=== PATIENT | female | born 1985 | race Caucasian/White ===

== ENCOUNTER → 2020-12-11 13:54 | Outpatient (CLI) | payer BC, SELFPAY ==
--- NOTE | 2020-12-11 14:02 | MM_ITS ---
PROCEDURE: MM DX IMPLANT LT W/HOSSEIN Digital Breast Tomosynthesis Included CLINICAL INDICATION: LT BREAST MASS BEHIND NIPPLE COMPARISON: US US BREAST LT COMPLETE from 12/11/2020 TECHNIQUE: Standard CC and MLO images and 3D Tomosynthesis was obtained. R2 CAD reviewed. FINDINGS: The left breast is composed of heterogeneously dense fibroglandular tissue, may obscure masses. At the site of marker placement, there is a focal asymmetric density noted, predominantly seen on the CC view without evidence of discrete nodules. Corresponding ultrasound demonstrates no suspicious findings or mass lesions. Breast implant is noted. No other dominant mass lesion, suspicious calcification or architectural distortion. IMPRESSION: Asymmetric density at the site of marker placement. No corresponding sonographic findings. BI-RAD Category: 3 Probably Benign Finding Short Term Follow-up FOLLOW-UP: 6M 6Month Follow-up (A letter has been sent to the patient regarding results of the study.) Dictated by: Selam Helton 12/13/2020 08:38 Selam Helton in [place] 12/13/2020 08:38
--- NOTE | 2020-12-11 14:04 | US_ITS ---
PROCEDURE: US BREAST LT COMPLETE CLINICAL INDICATION: LT BREAST MASS BEHIND NIPPLE ON IMPLANT PT COMPARISON: Diagnostic mammogram of the same date FINDINGS: No focal mass lesions or suspicious findings. Axillary lymph node is noted measuring up to 1.5 centimeters, demonstrate central fatty hilum. Breast implant is noted. IMPRESSION: No suspicious findings. Please see diagnostic mammogram report of the same date for further recommendations. Dictated by: Selam Helton 12/13/2020 09:00 Selam Helton in [facility] 12/13/2020 09:00
== END ==
PROVIDERS: Visit Provider Specialist
DX: N63.42 Unspecified lump in left breast, subareolar (principal); Z98.82 Breast implant status
CPT/HCPCS: 76641; 77061; 77065; G0279